=== PATIENT | male | born 1960 | race Caucasian/White ===

== ENCOUNTER → 2018-08-01 12:56 | Outpatient (CLI) | payer OTHER, SELFPAY ==
[2018-08-01 13:15] LABS: Prothrombin Time (Protime)PT. 13.2 SECONDS (11.7-14.9)
== END ==
PROVIDERS: Referring Provider Registered Nurse; Visit Provider Registered Nurse
DX: I48.92 Unspecified atrial flutter (principal)
CPT/HCPCS: 85610

== ENCOUNTER → 2018-08-28 16:12 | Outpatient (CLI) | payer OTHER, SELFPAY ==
[2017-02-12 15:31] VITALS: BMI 49.5
[2018-08-28 20:46] LABS: Anion Gap 8 (5-15); BUN 18 mg/dL (7-18); CPK Total, Creatine Kinase 56 U/L (39-308); Calcium,Total 8.9 mg/dL (8.5-10.1); Chloride 109 mmol/L (98-107); Creatinine, Serum 1.29 mg/dL (0.70-1.30); EST Glomerular Filtration Rate 61 mL/min (>60); Est Glom Filt Rate - Afr Amer 74 mL/min (>60); Glucose 165 mg/dL (74-106); Potassium 3.9 mmol/L (3.5-5.1); Sodium Level 143 mmol/L (136-145)
== END ==
PROVIDERS: Referring Provider Physician Assistant; Visit Provider Physician Assistant
DX: I25.10 Atherosclerotic heart disease of native coronary artery without angina pectoris (principal); R61 Generalized hyperhidrosis; R42 Dizziness and giddiness
CPT/HCPCS: 80048; 82550; 84484

== ENCOUNTER 2018-10-10 11:16 | Observation (INO) | payer OTHER, SELFPAY ==
[2018-10-10] VITALS (8 sets, daily range): BP systolic 129–165; BP diastolic 77–101; PULSE 85–99; RESP 16–18; TEMP 36.3–37.1; O2SAT 94–98; BMI 48.4; BMI 48.5; BMI 47.0
--- NOTE | 2018-10-10 11:47 | EKG12_ITS ---
Test Reason : SOB Blood Pressure : / mmHG Vent. Rate : 093 BPM Atrial Rate : 093 BPM P-R Int : 258 ms QRS Dur : 120 ms QT Int : 374 ms P-R-T Axes : 000 000 045 degrees QTc Int : 465 ms Sinus rhythm with sinus arrhythmia with 1st degree A-V block Non-specific intra-ventricular conduction delay Borderline ECG Confirmed by JOHN TURPIN, DAYAN ([id number]), industrial editor JESSICA LUCIANO ([id number]) on 10/14/2018 9:15:12 AM Referred By: BEATRICE Confirmed By:DAYAN LOPEZ MD
--- NOTE | 2018-10-10 12:18 | RAD_ITS ---
STUDY: X-RAY CHEST REASON FOR EXAM: Male, 57 years old. Dyspnea on exertion TECHNIQUE: PA and lateral views of the chest. COMPARISON: 02/12/2017 FINDINGS: The lungs are clear and expanded. There is no demonstrated pleural abnormality. Sternal cerclage wires are present from a prior sternotomy. Moderate cardiomegaly. Artificial heart valve is noted. Normal mediastinum and landon. Normal visualized pulmonary arteries. Normal visualized aortic arch and descending thoracic aorta. Normal visualized thoracic spine. Normal visualized ribs, clavicles, and shoulders. There is no demonstrated abnormality of the visualized soft tissue structures of the upper abdomen. RAD/Chest PA and Lateral IMPRESSION: No acute cardiopulmonary disease. Electronically Signed: Ashok Carbajal DO at 12:51 EST Tel , Service support ,
[2018-10-10 12:21] LABS: Absolute Lymphocyte Count 2.39 X10^3/ul (0.83-4.51); Absolute Neutrophil Count 10.7 X10^3/uL (2.0-7.7); Basophil# 0.02 X10^3/uL; Basophil% 0.1 % (0-1); Eosinophil# 0.17 X10^3/uL; Eosinophils% 1.2 % (0-5); Hematocrit 45.1 % (40-54); Hemoglobin 14.1 g/dl (13.0-16.5); Lymphocyte # 2.39 X10^3/ul (4.0); Lymphocyte % 16.5 % (19-41); Mean Corp Hgb Conc 31.3 g/gl (32-36); Mean Corpuscular Hgb 28.3 pg (27.0-32.0); Mean Corpuscular Volume 90.4 fL (80-94); Mean Platelet Vol. 10.7 fl (6.2-12.0); Monocyte# 1.02 X10^3/uL; Monocyte% 7.1 % (0-10); Neutrophil # 10.68 X10^3/uL (2.7-7.7); Neutrophil % 73.9 % (47-70); Platelet Count 200 K/mm3 (150-450); RBC Distribution Width CV 15.6 % (11.6-14.6); RBC Distribution Width SD 51.6 fl (35.1-43.9); Red Blood Count 4.99 M/mm3 (4.6-6.2); White Blood Count 14.5 K/mm3 (4.4-11.0)
[2018-10-10 12:25] LABS: POSITIVE COUNT NO; POSITIVE DIFFERENTIAL NO; POSITIVE MORPHOLOGY NO
[2018-10-10 12:37] LABS: International Normalized Ratio 1.2; Prothrombin Time (Protime)PT. 15.3 SECONDS (11.7-14.9)
[2018-10-10 12:39] LABS: Anion Gap 8 (5-15); BUN 19 mg/dL (7-18); BUN/Creat Ratio 15.7 RATIO (10-20); Calcium,Total 9.1 mg/dL (8.5-10.1); Chloride 104 mmol/L (98-107); Creatinine, Serum 1.21 mg/dL (0.70-1.30); EST Glomerular Filtration Rate 66 mL/min (>60); Est Glom Filt Rate - Afr Amer 79 mL/min (>60); Estimated Creatinine Clearance 62.97 ml/min; Glucose 125 mg/dL (74-106); Potassium 4.8 mmol/L (3.5-5.1); Sodium Level 138 mmol/L (136-145)
[2018-10-10 12:52] LABS: BNP,B-Type NATRIURETIC PEPTIDE 96.5 pg/mL (0-100)
--- NOTE | 2018-10-10 13:10 | ED.VIS.GEN ---
History of Present Illness Chief Complaint: Shortness of Breath Detail of Chief Complaint: Dyspnea on exertion past 3 weeks Informant: Patient Onset: Weeks Context: Sudden Onset Timing: Intermittent Quality: If patient walks greater than 100 feet Location: Not applicable Current Severity: Not present Maximum Severity: Severe Worsened by: Walking greater than 100 feet Relieved by: Rest Associated Symptoms: Diaphoresis Narrative: Patient is a middle-aged male with valvular heart disease status post aortic valve replacement who was sent to the emergency department because of dyspnea on exertion. For the past 3 weeks if he walks more than 100 feet he becomes short of breath and diaphoretic. Symptoms resolved with rest. He denies chest pain. He states he had a cardiac catheterization was told it is okay . He is unable to to tell me if the cath was normal or mild or moderate abnormality not requiring intervention. Patient reports increased weight gain because of noncompliance with diuretic. He has had increasing orthopnea. He denies PND. He does report shortness of breath at night. He denies fever, chills night sweats. Denies auditory, visual or auditory symptoms. He denies GI symptoms. - Past Medical History (1) Pulmonary edema cardiac cause Status: Acute (2) H/O aortic valve replacement with porcine valve Status: Chronic Comment: 07/2014 (3) H/O endocarditis Status: Chronic Comment: 07/2014 (4) H/O mitral valve repair Status: Chronic Comment: 07/2014 (5) H/O: gout Status: Chronic (6) Hypothyroidism Status: Chronic Past Medical History - Allergies and Home Meds Allergies/Adverse Reactions: Allergies No Known Allergies Allergy (Verified 10/10/18 11:18) Primary Care Physician: López Judge DO [Primary Care Provider] - Surgical History: - - Mitral valve repair and aortic valve replacement (porcine) 2013. Heart cath 2013 at [facility]-reportedly clean. Smoking Status: Never smoker - Family History Maternal Family History: Reports: Stroke Paternal Family History: Reports: Diabetes, Heart Disease Review of Systems General: Denies: Chills, Fever, Malaise, Sweats, Weight loss Eyes: Denies: Visual changes - bilaterally, Blurred Vision - bilaterally, Diplopia ENT: Denies: Bilateral ear pain, Rhinorrhea, Sore throat Cardiovascular: Reports: Heart racing. Denies: Chest pain, Palpitations Respiratory: Reports: Dyspnea, Dyspnea on exertion, Orthopnea. Denies: Cough, Sputum, Paroxysmal nocturnal dyspnea Gastrointestinal: Denies: Abdominal pain, Nausea, Vomiting, Diarrhea, Melena, Hematochezia Genitourinary: Denies: Dysuria, Hematuria, Frequency Musculoskeletal: Reports: Swelling - Patient reports swelling of both right and left lower extremity secondary to noncompliance with diuretic. Denies: Myalgias, Arthralgias, Back pain, Extremity Pain Skin: Denies: Rash, Wounds Neurological: Denies: Headache, Weakness, Numbness Endocrine: Denies: Polyuria, Polydipsia Hematologic: Denies: Easy bruising, Easy bleeding Allergy: Denies: Uticaria Physical Exam Vital Signs/Narrative: Vital Signs Temp Pulse Resp BP Pulse Ox 10/10/18 11:16 97.4 F L 97 18 165/101 H 98 Inital Vital Signs reviewed: Yes General: Well nourished, Well developed, Obese - Talk to him to Head: Normocephalic, Atraumatic. Negative for: Trauma Eyes: Perrl - The Dr. Preston Arcos and I both need, EOMI. Negative for: Pale conjunctiva - Dr. Clemente, Scleral icterus ENT: Moist mucous membranes - Thank you, No rhinorrhea, TM's clear Neck: Supple, Nontender, No lymphadenopathy, No JVD Cardiovascular: Regular rate, Regular rhythm, No murmurs, Normal S1, Normal S2 Respiratory: No distress - The, CTA bilaterally, Chest nontender Abdomen: Soft, Nontender, Nondistended, Normal bowel sounds Back: Nontender, Normal Inspection - I cannot feel mass in this case reviewed. Negative for: CVA tenderness Extremities: Nontender, Edema - 1+ bilaterally and symmetric Skin: Normal color - And not to be mean, No rash. Negative for: Cyanosis, Jaundice Neurological: Alert, Oriented x3, Cranial nerves II-XII grossly intact, Normal Strength, Normal Sensation Psychological: Normal affect, Normal Mood Diagnostic/Tx/Re-eval Chest X-Ray - ED: 2 View, Read by ED Physician, Normal, Heart - The this chest x-ray is, Lungs, Bony Structures, No Acute Disease, Cardiomegaly - Rhythm Strip Rhythm Strip: Sinus Rhythm Rate: 92 Ectopy: None - EKG Initial EKG Interpretation: Sinus Rhythm - Ventricular rate 93. First-degree AV block. Nonspecific intraventricular change. QRS duration is prolonged and reveals a nonspecific intraventricular conduction delay. - Medical Decision Making Patient with diaphoresis and dyspnea with exertion. Concern this is patient's anginal equivalent. Will perform cardiac workup. Chest x-ray was obtained to evaluate for pneumonia, CHF versus other cause of his dyspnea as well. Case was discussed with Dr. Guido the light bulb tester on-call. He was contacted because concern patient needs a cardiac cath and not a stress test. - Critical Care Time Critical care time (excluding procedures): 30-74 minutes, Discussing w/Patient &/or Family/Utilization Manager, Discussing w/Consultants, Arranging Admission or Transfer - Patient will also receive aspirin and dose of Lovenox. ED Disposition - Plan for ED Patient: Referrals: López Judge DO [Primary Care Provider] -
[2018-10-10] MEDS: Aspirin 81 MG TAB.CHEW 324 MG PO (13:43)
--- NOTE | 2018-10-10 13:53 | PCM.HP.STD ---
Problem List (1) Stable angina Status: Acute History of Present Illness Date of Admission: 10/10/18 Chief Complaint: Shortness of breath and diaphoresis. The patient is a 57 year old M presents with a 2-week history of shortness of breath and diaphoresis with exertion. States with that this is been going on for about 2 weeks and he gets shortness of breath and diaphoresis with exertion and resolves when he rests. He does not have any symptoms while at rest. Denies any chest pain. Denies any history of symptoms such as this in the past. Patient presented to the emergency room and underwent a workup that was unremarkable. Patient being brought in under observation status for further cardiac evaluation. Patient had a of last year. Prior to that procedure, he did undergo heart catheterization that was reportedly according the patient and his . [] Past Medical History Past Medical History (Chronic Problems): Chronic Problems H/O mitral valve repair (Chronic) 07/2014 H/O aortic valve replacement with porcine valve (Chronic) 07/2014 Obesity, morbid, BMI 50 or higher (Chronic) Morbid obesity (Chronic) H/O: gout (Chronic) Hypothyroidism (Chronic) H/O endocarditis (Chronic) 07/2014 Allergies No Known Allergies Allergy (Verified 10/10/18 11:18) Home Medications: Ambulatory Orders Medication Instructions Recorded Aspirin [Aspirin, Baby] 81 mg PO DAILY@0800 02/12/17 Levothyroxine [Synthroid] 250 mcg PO FR 02/12/17 Metoprolol Tartrate [Lopressor 100 mg PO BID 02/12/17 (beta jose miguel)] Acetaminophen [Tylenol Arthritis] 1,300 mg PO DAILY 10/10/18 Amiodarone HCl 400 mg PO DAILY 10/10/18 Apixaban [Eliquis] 5 mg PO DAILY 10/10/18 Atorvastatin Calcium [Lipitor] 20 mg PO QHS 10/10/18 Duloxetine HCl 60 mg PO DAILY 10/10/18 Folic Acid 1 mg PO DAILY 10/10/18 Iron Polysaccharide Complex 150 mg PO DAILY 10/10/18 [Ferrex 150] Levothyroxine Sodium 125 mcg PO SUMOTUWETHSA 10/10/18 Sitagliptin Phosphate [Januvia] 100 mg PO DAILY 10/10/18 Torsemide 20 mg PO DAILY PRN PRN 10/10/18 Surgical History: - - Mitral valve repair and aortic valve replacement (porcine) 2013. Heart cath 2013 at [facility]-reportedly clean. Smoking Status: Never smoker Tobacco Use: Non-smoker Alcohol: Rare Drugs: None - *Family History Maternal History Items: Stroke Paternal History Items: Diabetes, Heart Disease Review of Systems Constitutional: Denies: Anorexia, Chills, Fever, Malaise, Weakness Eyes: Denies: Blurred vision, Double vision HEENT: Denies: Head Aches, Sinus Congestion, Sinus Drainage Cardiovascular: Denies: Chest Pain, Edema Respiratory: Reports: Shortness of breath upon exertion. Denies: Cough, Shortness of breath at rest Gastrointestinal: Denies: Abdominal Pain, Nausea, Vomiting Genitourinary: Denies: Dysuria Musculoskeletal: Denies: Joint Pain, Joint Tenderness Skin: Denies: Dryness, Jaundice Neurological: Denies: Numbness, Tingling, Focal weakness Psychiatric: Denies: Anxiety, Depression Hematologic/ Lymphatic: Reports: Hx of blood clot - Related with PICC line that he had for endocarditis.. Denies: Easy Bruising, Easy Bleeding Comment: A 10 point review of systems were negative except as mentioned in the history of present illness and the other review of systems. VTE Information - Inpt Only VTE Present on Admission: No VTE Mechan Device Prophylaxis: None VTE Pharm Prophylaxis ordered?: No Reason prophylaxis not ordered:: Drug Interaction Patient Problems: Active and Suspected Problems Stable angina (Acute) - Physical Exam General: Alert, Cooperative, No apparent distress HEENT: Atraumatic, Normocephalic Oral: Moist Mucosa, No Gingival or Mucosal Lesions/ Ulcerations Neck: No Nodes, Thyroid Normal Size and Texture Lungs: Clear to auscultation, Normal air movement, No rhonchi, No wheeze Cardiovascular: Regular rate, Regular Rhythm, Normal S1, Normal S2, No murmurs Abdomen: Bowel Sounds Present, Soft, Non Tender, Non-Distended, No Hepato-splenomegaly Extremities: No edema, No Calf Tenderness Skin: No rashes, - - Healed excoriations on his calves bilaterally. Musculoskeletal: No Tenderness to Palpation of Joints or Extremities, No Muscle Wasting Lymphatic: No Cervical, Supraclavicular, or Inguinal Adenopathy Psych/Mental Status: Normal Affect, Appropriate Vital Signs Temp Pulse Resp BP Pulse Ox 36.3 C L 97 18 165/101 H 98 10/10/18 11:16 10/10/18 11:16 10/10/18 11:16 10/10/18 11:16 10/10/18 11:16 Oxygen Delivery Method Room Air Weight: 140.4 kg Body Mass Index (BMI) 48.4 Laboratory Tests Past 24 Hrs 10/10/18 10/10/18 10/10/18 12:10 12:10 12:10 WBC 14.5 H RBC 4.99 Hgb 14.1 Hct 45.1 MCV 90.4 MCH 28.3 MCHC 31.3 L RDW 15.6 H RDW Differential 51.6 H Plt Count 200 MPV 10.7 Immature Gran % (Auto) 1.200 H Neut % (Auto) 73.9 H Lymph % (Auto) 16.5 L Bollinger % (Auto) 7.1 Eos % (Auto) 1.2 Baso % (Auto) 0.1 Absolute Neuts (auto) 10.7 H Absolute Lymphs (auto) 2.39 Total Counted Not Reportable PT 15.3 H INR 1.2 APTT 32.0 Sodium 138 Potassium 4.8 Chloride 104 Carbon Dioxide 26.0 Anion Gap 8 BUN 19 H Creatinine 1.21 Estim Creat Clear Calc 62.97 Est GFR (MDRD) Af Amer 79 Est GFR (MDRD) Non-Af 66 BUN/Creatinine Ratio 15.7 Glucose 125 H Calcium 9.1 Troponin I < 0.015 B-Natriuretic Peptide 10/10/18 12:10 WBC RBC Hgb Hct MCV MCH MCHC RDW RDW Differential Plt Count MPV Immature Gran % (Auto) Neut % (Auto) Lymph % (Auto) Bollinger % (Auto) Eos % (Auto) Baso % (Auto) Absolute Neuts (auto) Absolute Lymphs (auto) Total Counted PT INR APTT Sodium Potassium Chloride Carbon Dioxide Anion Gap BUN Creatinine Estim Creat Clear Calc Est GFR (MDRD) Af Amer Est GFR (MDRD) Non-Af BUN/Creatinine Ratio Glucose Calcium Troponin I B-Natriuretic Peptide 96.5 Chest x-ray reviewed and was under my showed sternotomy but no infiltrate nor edema. EKG reviewed and showed normal sinus rhythm. Did show inverted T waves in anterior leads. Essentially unchanged from February 13, 2017. Assessment/Plan All Active Problems Stable angina (Acute) Chest pain (Acute) Pulmonary edema cardiac cause (Acute) Shortness of breath (Acute) 1. Stable angina: No evidence of any acute heart attack at this time. Patient reportedly had a normal heart catheterization and [facility] from last summer. Unclear how normal it was. Will request records from [facility]. Cycle troponins. Patient was ordered Lovenox in the emergency room the patient is already on request. I have discontinue the Lovenox. Discussed with Dr. Guido of cardiology, and discussed the patient's case. He did recommend an echocardiogram to evaluate his heart valves to see if those may be an issue in regards to his symptoms. He and I both agreed to hold off on cardiology consultation for now unless abnormality evidenced in lab work echocardiogram or if there was more stenosis on his cardiac catheterization that he and his were led to believe. But apparently must of been normal enough for him to undergo the heart valve replacement. We will cycle troponins and also check a d-dimer given the patient's history of DVT due to PICC line that may have led to a pulmonary embolism previously when he was treated for endocarditis. I did attempt to pull the patient's heart cath data through [facility], but it appears that that system is unavailable to me at this time. 2. Atrial fibrillation. Currently normal sinus rhythm at this time. Patient on Eliquis 5 mg daily, will change that to twice daily. 3. DVT prophylaxis: Patient is already anticoagulated. Code Visit OBSV E&M: 29205 Initial observation care L2
[2018-10-10] MEDS: Enoxaparin 120 MG/0.8 ML Syringe SC (14:43)
--- NOTE | 2018-10-10 15:48 | ECHOCS_ITS ---
Reason For Study: Angina Procedure This was a 2D Doppler, Color Flow transthoracic echocardiogram. Exam performed portable in patient room. Left Ventricle Normal LV size. Mild concentric left ventricular hypertrophy. The estimated ejection fraction is 53 %. Left ventricular systolic function is lower limits of normal. Unable to assess diastolic dysfunction due to arrhythmia. Right Ventricle Normal RV size. Normal systolic function. Atria Normal left atrium. Normal right atrium. Mitral Valve Mitral valve not well visualized. Mild-Moderate (1-2+) eccentric mitral valve insufficiency. An annuloplasty ring is noted in the mitral position. Tricuspid Valve Normal tricuspid valve. Unable to estimate RV systolic pressure/pulmonary artery pressure due to technically difficult study. Aortic Valve Mean aortic valve gradient 8 mmHg. Stable appearing bioprosthetic aortic valve apparatus. Mobile mass noted in the subvalvular apparatus suggestive but not diagnostic of vegetation. Great Vessels Mildly dilated aortic root. Medication Definity0.4ml given slow IV push to enhance endocardial definition. MMode/2D Measurements & Calculations LVIDd: 4.1 cm IVSd: 1.3 cm LVOT diam: 2.1 cm LVIDs: 3.3 cm LVPWd: 1.3 cm LVOT area: 3.6 cm2 RVDd: 4.5 cm FS: 19.7 % Ao root diam: 4.0 cm LAV(MOD-bp): 52.5 ml LVAd ap4: 35.3 cm2 LAV(MOD-bp) Indexed: 21.6 ml/m2 EDV(MOD-sp4): 122.8 ml LAV(MOD-sp2): 53.8 ml EDV(sp4-el): 125.7 ml LAV(MOD-sp4): 51.1 ml LVAs ap4: 24.9 cm2 ESV(MOD-sp4): 62.4 ml ESV(sp4-el): 63.3 ml EF(MOD-sp4): 49.2 % EF(sp4-el): 49.6 % SV(MOD-sp4): 60.4 ml SV(sp4-el): 62.3 ml LA A4 area: 20.3 cm2 LA dimension(2D): 5.0 cm RA A4 area: 14.7 cm2 Time Measurements MV dec time: 0.15 sec Doppler Measurements & Calculations MV E max jayce: 150.1 cm/sec MV V2 max: 151.0 cm/sec MV P1/2t max jayce: 141.5 cm/sec MV A max jayce: 76.8 cm/sec MV max P.1 mmHg MV P1/2t: 80.4 msec MV E/A: 2.0 MV V2 mean: 90.0 cm/sec MV mean P.9 mmHg MV dec slope: 515.6 cm/sec2 MV V2 VTI: 31.7 cm MVA(P1/2t): 2.7 cm2 MVA(VTI): 2.6 cm2 Ao V2 max: 190.5 cm/sec LV V1 max: 126.9 cm/sec SV(LVOT): 82.6 ml Ao max P.5 mmHg LV V1 max P.5 mmHg Ao V2 mean: 134.8 cm/sec LV V1 mean P.9 mmHg Ao mean P.1 mmHg LV V1 mean: 94.5 cm/sec Ao V2 VTI: 31.8 cm LV V1 VTI: 23.0 cm JOAQUIN(I,D): 2.6 cm2 JOAQUIN(V,D): 2.4 cm2 PA V2 max: 82.5 cm/sec PI end-d jayce: 69.9 cm/sec Interpretation Summary Normal LV size. The estimated ejection fraction is 53 %. Left ventricular systolic function is lower limits of normal. Unable to assess diastolic dysfunction due to arrhythmia. Stable appearing bioprosthetic aortic valve apparatus. Mobile mass noted in the subvalvular apparatus suggestive but not diagnostic of vegetation Contrast injection was performed. The study was technically difficult. Ordering Physician: Roverto Blankenship Referring Physician: López Burgos Performed By: Yesika Capellan, SUSAN, RVT
--- NOTE | 2018-10-10 16:21 | CASEMGMT ---
RN CM Assessment Introduced role of RN CM to patient. Patient is alert, oriented and able to participate in RN CM Assessment. Care providers, pharmacy, and demographics verified. Presentation: Admitted for Angina. CC: SOB, Diaphoresis. PCP: Dr López Judge- [facility] Specialists: Cardio- Dr Maida Moore- [facility] Preferred Pharmacy: [facility] Insurance: MMO Prescription Benefit: Yes LNOK: Mehreen Forman Living Arrangements: Works, lives with in a SS Home with 2-3 steps to enter. Independent with ambulation and ADL's. Transportation: Patient drives, Drove self and plans to drive self on DC. DME: CPAP, Glucometer. No preference on Company. HHC: Has had in past, cannot remember Agency, No preference on Agency. SNF: None in past, No preference on Facility. DC PLAN: Home with no anticipated needs at this time. Miriam Ritchie RNCM
[2018-10-10 16:38] LABS: D-Dimer Quantitative (DVT/PE) 0.33 FEU/ug/m (0.27-0.49)
[2018-10-10] MEDS: Atorvastatin Calcium 20 MG Tablet PO (22:20)
[2018-10-10] MEDS: Metoprolol Tartrate 100 MG Tablet PO (22:20)
[2018-10-10] MEDS: APIXABAN 5 MG TABLET PO (22:20)
[2018-10-11] VITALS (7 sets, daily range): BP systolic 125–134; BP diastolic 70–85; PULSE 85–95; RESP 16–18; TEMP 36.6–36.8; O2SAT 94–97
[2018-10-11] MEDS: Levothyroxine 125 MCG Tablet PO (05:48)
[2018-10-11 07:03] LABS: Cholesterol 158 mg/dL (200); High Density Lipoprotein 41 mg/dL; Thyroid Stim Hormone (TSH) 4.73 uIU/mL (0.358-3.74); Triglycerides 119 mg/dL; Very Low Density Lipoprotein 24 mg/dL (5-40)
[2018-10-11] MEDS: Folic Acid 1 MG Tablet PO (09:42)
[2018-10-11] MEDS: APIXABAN 5 MG TABLET PO (09:43)
[2018-10-11] MEDS: Aspirin 81 MG TAB.CHEW PO (09:43)
[2018-10-11] MEDS: Amiodarone 200 MG Tablet 400 MG PO (09:43)
[2018-10-11] MEDS: DULoxetine Hcl 60 MG Capsule PO (09:43)
[2018-10-11] MEDS: Acetaminophen 500 MG Tablet 1000 MG PO (09:44)
[2018-10-11] MEDS: LINAGLIPTIN 5 MG TABLET PO (09:44)
[2018-10-11] MEDS: Iron Polysaccharide Complex 150 MG CAPSULE PO (09:45)
[2018-10-11] MEDS: Metoprolol Tartrate 100 MG Tablet PO (09:45)
--- NOTE | 2018-10-11 13:07 | DCINST_ITS ---
- Discharge Diagnoses Current Active Problems: Current Active and Chronic Problems Stable angina (Acute) Reason(s) for Visit for Discharge Instructions: Shortness of breath You will use the following diet at home:: Calorie/Carbohydrate Controlled (specify 1200, 1400, etc), Cardiac Your food should be the consistency of: Regular Your liquids should be the consistency of: Regular/Thin Discharge Activity: Return to Normal Activity Additional Instructions: Call your cardiology team to make an appt to see them on Saturday. You will need a MARILU. Continue to take all your medications. Follow-up with your primary doctor within 1-2 weeks Allergies/Adverse Reactions: Allergies No Known Allergies Allergy (Verified 10/10/18 11:18) Medications to take at Discharge Aspirin [Aspirin, Baby] 81 mg PO DAILY@0800 02/12/17 Levothyroxine [Synthroid] 250 mcg PO FR 02/12/17 Metoprolol Tartrate [Lopressor (beta jose miguel)] 100 mg PO BID 02/12/17 Acetaminophen [Tylenol Arthritis] 1,300 mg PO DAILY 10/10/18 Amiodarone HCl 400 mg PO DAILY 10/10/18 Apixaban [Eliquis] 5 mg PO DAILY 10/10/18 Atorvastatin Calcium [Lipitor] 20 mg PO QHS 10/10/18 Duloxetine HCl 60 mg PO DAILY 10/10/18 Folic Acid 1 mg PO DAILY 10/10/18 Iron Polysaccharide Complex [Ferrex 150] 150 mg PO DAILY 10/10/18 Levothyroxine Sodium 125 mcg PO SUMOTUWETHSA 10/10/18 Sitagliptin Phosphate [Januvia] 100 mg PO DAILY 10/10/18 Torsemide 20 mg PO DAILY PRN PRN 10/10/18 Primary Care Physician: López Judge DO [Primary Care Provider] - Please follow up with your Primary Care Physician in: within 1-2 weeks Test Results: Test results from this visit will be discussed in further detail at your follow- up appointment, if applicable. When: Follow-up with your cardiology team within 1-2 weeks Proposed Discharge Date: 10/11/18
--- NOTE | 2018-10-11 13:09 | PCM.DC.SUM ---
Discharge Date and Diagnosis Date of Admission: 10/10/18 Date of Discharge: 10/11/18 - Primary Discharge Diagnosis Active and Suspected Problems Chest pain, stable angina - Secondary Discharge Diagnosis Chronic Problems H/O mitral valve repair (Chronic) 07/2014 H/O aortic valve replacement with porcine valve (Chronic) 07/2014 Obesity, morbid, BMI 50 or higher (Chronic) Morbid obesity (Chronic) H/O: gout (Chronic) Hypothyroidism (Chronic) H/O endocarditis (Chronic) 07/2014 Hospital Course and Treatment Imaging Results: Clinical Impression(s) from Imaging Studies Chest X-Ray 10/10/18 12:18 IMPRESSION: No acute cardiopulmonary disease. Electronically Signed: Ashok Carbajal DO at 12:51 EST Tel , Service support , None Operations: None Procedures: 2-D Echocardiogram Summary of Care Provided: The patient is a 57 year old M past medical history of morbid obesity, EDSON on CPAP, hypothyroidism who comes in with complaints of shortness of breath with diaphoresis. Patient follows up with the cardiology team in the [facility] system. He has history of aortic valve replacement. He says he had a recent cardiac cath 6 months prior to admission that was normal. History of endocarditis status post IV antibiotics complicated by PICC line acute DVT for which he has been on Eliquis. Patient's admitting EKG was unremarkable. Troponins were negative. He underwent 2D echo that showed his bioprosthetic aortic valve with questionable mobile mass around the sub-valvular apparatus. He denied any fever or chills. Had leukocytosis. Had elevated TSH. Admits to missing a couple of doses of his levothyroxine. Patient was eager to be discharged. Had a long discussion with him. I asked him to call his cardiology team in [facility] on Saturday and get in to see them in 1 week because he needs to have a MARILU done. I encouraged him to take all his medications. He voiced understanding. Blood cultures were taken. Subjective: On the day of discharge, patient denied any complaints. He has been walking around the nurse's unit. Denied any chest pain. Occasionally gets short of breath. - Physical Exam General: Alert, Oriented x3, Cooperative, No apparent distress, - - On room air, morbidly obese HEENT: Atraumatic, PERRLA, EOMI, Normocephalic Oral: Moist Mucosa Neck: Supple Lungs: Clear to auscultation, Normal air movement Cardiovascular: Regular rate, Regular Rhythm, Normal S1, Normal S2, No murmurs Abdomen: Bowel Sounds Present, Soft, Non Tender, Non-Distended, No Hepato-splenomegaly Extremities: No edema Skin: No rashes, No breakdown Musculoskeletal: No Tenderness to Palpation of Joints or Extremities Lymphatic: No Cervical, Supraclavicular, or Inguinal Adenopathy Neurological: Cranial nerves II-XII grossly intact, Neuro grossly intact Psych/Mental Status: Normal Affect, Appropriate Vital Signs Temp Pulse Resp BP Pulse Ox 97.8 F 95 18 127/85 H 97 10/11/18 09:36 10/11/18 09:45 10/11/18 09:36 10/11/18 09:36 10/11/18 09:36 Oxygen Delivery Method Room Air Weight: 136.2 kg Body Mass Index (BMI) 47.0 Intake and Output for Last 24 Hours 10/09/18 10/10/18 10/11/18 23:59 23:59 23:59 Intake Total 480 / 480 600 / 600 Balance 480 / 480 600 / 600 Laboratory Tests Past 24 Hrs 10/10/18 10/10/18 10/10/18 16:08 16:08 18:57 D-Dimer Quant (PE/DVT) 0.33 Troponin I < 0.015 < 0.015 Triglycerides Cholesterol LDL Cholesterol VLDL Cholesterol HDL Cholesterol TSH Free T4 Free T3 pg/dL 10/11/18 10/11/18 05:40 05:40 D-Dimer Quant (PE/DVT) Troponin I Triglycerides 119 Cholesterol 158 LDL Cholesterol 93 VLDL Cholesterol 24 HDL Cholesterol 41 TSH 4.73 H Free T4 Pending Free T3 pg/dL Pending Discharge Diet: Low fat/ Low Cholesterol Discharge Activity: Return to Normal Activity Home Medications: Medications to take at Discharge Aspirin [Aspirin, Baby] 81 mg PO DAILY@0800 02/12/17 Levothyroxine [Synthroid] 250 mcg PO FR 02/12/17 Metoprolol Tartrate [Lopressor (beta jose miguel)] 100 mg PO BID 02/12/17 Acetaminophen [Tylenol Arthritis] 1,300 mg PO DAILY 10/10/18 Amiodarone HCl 400 mg PO DAILY 10/10/18 Apixaban [Eliquis] 5 mg PO DAILY 10/10/18 Atorvastatin Calcium [Lipitor] 20 mg PO QHS 10/10/18 Duloxetine HCl 60 mg PO DAILY 10/10/18 Folic Acid 1 mg PO DAILY 10/10/18 Iron Polysaccharide Complex [Ferrex 150] 150 mg PO DAILY 10/10/18 Levothyroxine Sodium 125 mcg PO SUMOTUWETHSA 10/10/18 Sitagliptin Phosphate [Januvia] 100 mg PO DAILY 10/10/18 Torsemide 20 mg PO DAILY PRN PRN 10/10/18 Primary Care Physician: López Judge DO [Primary Care Provider] - Please follow up with your Primary Care Physician in: within 1-2 weeks When: Follow-up with your cardiology team within 1-2 weeks Disposition: Home Minutes spent on discharge:: 40 Patient Condition:: Stable Medical Necessity - Tobacco Use Smoking Status: Never smoker Tobacco Use: Non-smoker Meaningful Use Info Meaningful Use Diagnoses (Choose all that apply): None applicable Code Visit Inpatient E&M: 53437 Disch Hosp
[2018-10-11 13:30] LABS: Free T3 1.6 pg/mL (2.18-3.98); T4 Free Direct 1.08 ng/dL (0.76-1.46)
[2018-10-11 14:24] LABS: Absolute Lymphocyte Count 2.08 X10^3/ul (0.83-4.51); Absolute Neutrophil Count 10.8 X10^3/uL (2.0-7.7); Basophil# 0.03 X10^3/uL; Basophil% 0.2 % (0-1); Eosinophil# 0.12 X10^3/uL; Eosinophils% 0.8 % (0-5); Hematocrit 46.5 % (40-54); Hemoglobin 14.9 g/dl (13.0-16.5); Lymphocyte # 2.08 X10^3/ul (4.0); Lymphocyte % 14.6 % (19-41); Mean Corpuscular Hgb 28.5 pg (27.0-32.0); Mean Corpuscular Volume 89.1 fL (80-94); Mean Platelet Vol. 10.9 fl (6.2-12.0); Monocyte# 1.07 X10^3/uL; Monocyte% 7.5 % (0-10); Neutrophil # 10.75 X10^3/uL (2.7-7.7); Neutrophil % 75.8 % (47-70); POSITIVE COUNT NO; POSITIVE DIFFERENTIAL NO; POSITIVE MORPHOLOGY NO; Platelet Count 223 K/mm3 (150-450); RBC Distribution Width CV 15.8 % (11.6-14.6); RBC Distribution Width SD 51.2 fl (35.1-43.9); Red Blood Count 5.22 M/mm3 (4.6-6.2); White Blood Count 14.2 K/mm3 (4.4-11.0)
== END 2018-10-11 13:06 | disposition home or self-care (01) ==
LOC: ED 12:40 → PCU 15:32
PROVIDERS: Emergency Provider Emergency Medicine; Family Provider Student in an Organized Health Care Education/Training Program; PCP Student in an Organized Health Care Education/Training Program; Visit Provider Internal Medicine
DX: I20.8 Other forms of angina pectoris (principal); E66.01 Morbid (severe) obesity due to excess calories; E03.9 Hypothyroidism, unspecified; I48.91 Unspecified atrial fibrillation; Z79.899 Other long term (current) drug therapy; Z79.82 Long term (current) use of aspirin; Z79.01 Long term (current) use of anticoagulants; Z68.42 Body mass index [BMI] 45.0-49.9, adult; Z71.3 Dietary counseling and surveillance; Z95.3 Presence of xenogenic heart valve; Z86.718 Personal history of other venous thrombosis and embolism; I34.0 Nonrheumatic mitral (valve) insufficiency; G47.33 Obstructive sleep apnea (adult) (pediatric)
CPT/HCPCS: 36415; 71046; 80048; 80061; 83880; 84439; 84443; 84481; 84484; 85025; 85379; 85610; 85730; 87040; 93005; 93306; 96372; 99218; 99283; Q9957; A4216; C8929; G0378

== ENCOUNTER → 2022-10-29 | Outpatient (CLI) | payer OTHER, SELFPAY ==
--- NOTE | 2022-10-29 13:59 | EKG12_ITS ---
Test Reason : SOB Blood Pressure : / mmHG Vent. Rate : 077 BPM Atrial Rate : 085 BPM P-R Int : 000 ms QRS Dur : 100 ms QT Int : 428 ms P-R-T Axes : 000 007 173 degrees QTc Int : 484 ms Accelerated Junctional rhythm T wave abnormality, consider lateral ischemia Prolonged QT Abnormal ECG Confirmed by JOHN TURPIN, DAYAN ([id number]), assistant editor JENNIFER RESENDEZ ([id number]) on 10/30/2022 8:43:21 AM Referred By: KEVIN PALACIOS Confirmed By:DAYAN LOPEZ MD
--- NOTE | 2022-10-29 14:00 | ECHOCS_ITS ---
Reason For Study: ABN HEART Procedure This was a 2D Doppler, Color Flow transthoracic echocardiogram. The study was technically difficult. Contrast injection was performed. Exam performed in department. Left Ventricle Normal LV size. Moderate concentric left ventricular hypertrophy. Left ventricular systolic function is normal. The estimated ejection fraction is 65 %. No regional wall motion abnormalities noted. Right Ventricle Normal RV size. Normal systolic function. Atria The left atrium is mildly enlarged. Normal right atrium. Mitral Valve Status post mitral valve repair with annuloplasty ring. Tricuspid Valve Normal tricuspid valve. Aortic Valve Stable appearing bioprosthetic aortic valve apparatus. Pulmonic Valve Normal pulmonic valve. Great Vessels Normal aortic root. The pulmonary artery is normal size. Normal inferior vena cava. Pericardium/Pleural No pericardial effusion. Medication 22 gauge I.V. with prn adaptor inserted into right arm. Diluted definity 1ml given slow IV push to enhance endocardial definition. MMode/2D Measurements & Calculations LVIDd: 4.3 cm IVSd: 1.4 cm Ao root diam: 3.5 cm LVIDs: 3.3 cm LVPWd: 2.1 cm FS: 24.5 % LAV(MOD-bp): 68.5 ml LVAd ap4: 44.6 cm2 SV(MOD-sp4): 81.7 ml LAV(MOD-bp) Indexed: 28.9 ml/m2 LVLd ap4: 10.1 cm LAV(MOD-sp2): 65.1 ml EDV(MOD-sp4): 162.8 ml LAV(MOD-sp4): 68.3 ml EDV(sp4-el): 167.7 ml LVAs ap4: 30.9 cm2 LVLs ap4: 9.4 cm ESV(MOD-sp4): 81.0 ml ESV(sp4-el): 85.9 ml EF(MOD-sp4): 50.2 % EF(sp4-el): 48.7 % SV(sp4-el): 81.7 ml LA A4 area: 22.2 cm2 LA dimension(2D): 4.9 cm Time Measurements MV dec time: 0.14 sec Doppler Measurements & Calculations MV E max syd: 149.3 cm/sec Lat Peak E' Syd: 12.6 cm/sec MV V2 max: 149.7 cm/sec MV A max syd: 133.4 cm/sec E/E' lat: 11.9 MV max P.0 mmHg MV E/A: 1.1 MV V2 mean: 93.9 cm/sec MV mean P.4 mmHg MV V2 VTI: 33.3 cm Ao V2 max: 167.5 cm/sec LV V1 max: 118.3 cm/sec MV dec slope: 1045 cm/sec2 Ao max P.2 mmHg LV V1 max P.6 mmHg Ao V2 mean: 125.1 cm/sec Ao mean P.6 mmHg Ao V2 VTI: 34.2 cm PA V2 max: 107.2 cm/sec PA V2 mean: 69.6 cm/sec ECHO/Echo Complete W/ Contrast Interpretation Summary Status post mitral valve repair with annuloplasty ring. The left atrium is mildly enlarged. Normal LV size. Moderate concentric left ventricular hypertrophy. Left ventricular systolic function is normal. The estimated ejection fraction is 65 %. Contrast injection was performed. Ordering Physician: [facility] Doctor, Out of Referring Physician: KEVIN PALACIOS Performed By: Winter Irizarry RCS
--- NOTE | 2022-10-29 14:00 | ART_ITS ---
Reason For Study: DM Procedure A bilateral lower extremity continuous wave Doppler with analog waveform analysis and ankle brachial indexes. Left Segmental Pressures Left brachial= 141mmHg. Left posterior tibial artery = 168mmHg. Left dorsalis pedis artery = 136mmHg. Left digit = 116 mmHg. The left dorsalis pedis waveforms are triphasic. The left posterior tibial artery waveforms are triphasic. Right Segmental Pressures Right brachial= 144mmHg. Right posterior tibial artery = 166mmHg. Right dorsalis pedis artery = 160mmHg. The right dorsalis pedis waveforms are triphasic. The right posterior tibial artery waveforms are triphasic. Indices The right ankle brachial index by the dorsalis pedis is 1.11. The right ankle brachial index by the posterior tibial artery is 1.15. The left ankle brachial index by the dorsalis pedis is 0.94. The left ankle brachial index by the posterior tibial artery is 1.17. The left digital-brachial index is 0.81. VL/Ankle Brachial Index Interpretation Summary Normal right lower extremity posterior tibialis and dorsalis pedis ankle-brachi al index of 1.15 and 1.11 respectively with triphasic Doppler waveforms Normal left lower extremity posterior tibialis and dorsalis pedis ankle-brachia l indices of 1.17 and 0.94 respectively with triphasic Doppler waveforms The left digital brachial index is normal at 0.81 Ordering Physician: Az Murillo Referring Physician: López Judge Performed By: Estefania Adkins RVT
[2022-10-29 14:27] LABS: Color, Urine Yellow (Yellow); Glucose, Dipstick Normal (Normal); Ketone-Dipstick Negative (Negative); Leukocyte Esterase-Dipstick 25 /ul (Negative); Nitrite-Dipstick Negative (Negative); Occult Blood-Urine 10 /ul (Negative); Protein-Dipstick 15 mg/dl (Negative); Urine Bilirubin Dipstick Negative (Negative); Urine Clarity Clear (Clear); Urine Urobilinogen Normal (Normal)
[2022-10-29 15:17] LABS: ALB/GLOB Ratio 0.7 RATIO (0.9-2.4); AST(SGOT) 44 U/L (15-37); Alanine Aminotransfer ALT/SGPT 37 U/L (16-61); Alkaline Phosphatase 96 U/L (45-117); Anion Gap 5 (5-15); BUN 17 mg/dL (7-18); BUN/Creat Ratio 15.9 RATIO (10-20); Calcium,Total 8.8 mg/dL (8.5-10.1); Chloride 106 mmol/L (98-107); Creatinine, Serum 1.07 mg/dL (0.70-1.30); EST Glomerular Filtration Rate 75 mL/min (>60); Est Glom Filt Rate - Afr Amer 90 mL/min (>60); Globulin 4.4 g/dL (2.2-4.2); Glucose 180 mg/dL (74-106); Potassium 3.9 mmol/L (3.5-5.1); Protein, Total 7.4 g/dL (6.4-8.2); Sodium Level 138 mmol/L (136-145)
== END | disposition home or self-care (01) ==
PROVIDERS: PCP Student in an Organized Health Care Education/Training Program
DX: E11.9 Type 2 diabetes mellitus without complications (principal); I73.9 Peripheral vascular disease, unspecified; R00.2 Palpitations
CPT/HCPCS: 36415; 80053; 81002; 93005; 93306; 93922; Q9957; A4216; C8929